=== PATIENT | female | born 1980 | race Caucasian/White ===

== ENCOUNTER 2017-12-22 09:36 | Emergency (ER) | payer OTHER ==
[~2017-12-22] VITALS: Ht 170.2 cm; Wt 91.7 kg
[~2017-12-22 09:36] MED LIST: B-CO1CAP5 PO; CHOL100010 PO; CLOM50CA3 PO; CYM60 PO; GLC/500 PO; LAMO200T35 PO; MULT-240 PO
[2017-12-22 09:43] VITALS: BP 132/82; TEMP 36.8; Ht 170.2 cm; Wt 91.7 kg
[2017-12-22] MEDS ORDERED: NEOMYCIN/POLYMYX/HYDROCORT OT SOLN 10 ML BTL OT STA (10:22)
[2017-12-22] MEDS ORDERED: OXYC1TAB3 PO (10:27)
--- NOTE | 2017-12-22 10:30 | EMERGENCY ROOM VISIT NOTE ---
ED Visit Note First contact with patient: 10:11 CHIEF COMPLAINT: Earache HISTORY OF PRESENT ILLNESS: This 37-year-old female patient presents to the emergency department, ambulatory, and states they have had a right sided earache 3 days. The pain is moderate, and is gradually increasing. They have noticed swelling and tenderness around the ear canal and pain below the ear on the upper neck. The pain is rated as sharp and 7/10. The patient has not been swimming recently. The patient does have a history of otitis media in the past , but states the hearing loss is worse now than previously. The patient has not had other URI symptoms recently. The patient has not had a fever. The patient has taken 400mg ibuprofen q4 hours with some relief of the pain. REVIEW OF SYSTEMS: A 6 system review of systems was completed with positives and pertinent negatives listed in the HPI. ALLERGIES: Lomotil MEDICATIONS: Adderall, Cymbalta PMH: PCOS SOCIAL HISTORY: The patient lives locally with family. She denies drug, alcohol , tobacco use. PHYSICAL EXAM: Vital Signs: Reviewed Nurse's notes, vital signs stable. GENERAL : This is a 37-year-old white female, in no acute distress, non toxic in appearance, well developed, well nourished. SKIN: Normal. MOUTH: The pharynx is normal in appearance and the tonsils are not enlarged. The airway is patent. There are no exudates over the tonsils. EARS: The right external auditory canal is swollen and inflamed and there is positive tragal tenderness. The tympanic membrane is slightly erythematous, but not bulging, with no effusion. The left tympanic membrane is pearly varela without erythema or bulging and the external auditory canal is clear. HEART: Regular rate and rhythm without murmurs gallops or rubs. LUNGS: Clear to auscultation bilaterally without wheezes, rales or rhonchi. No dullness to percussion. No accessory muscle use. No retractions. ED COURSE: I examined the patient. Her symptoms are consistent with otitis externa. A wick was easily placed in the right ear by myself. Cortisporin otic suspension 4 drops were placed in the right ear. She will be given a short course of narcotics for her pain. Discharge instructions reviewed. The patient was discharged home in stable condition. I attest that I have personally reviewed the patient's current medication list. Patient was found to have normal blood pressure on screening and does not require follow-up. Differential diagnosis includes otitis externa, otitis media, mastoiditis, acute sinusitis, dental abscess, odontalgia, viral etiology, malignancy, and others DIAGNOSIS: Acute right otitis externa Current/Historical Medications Scheduled B-Complex W/Biotin & Folic Aci (Super B-Complex), 1 CAP PO DAILY Cholecalciferol (Vitamin D), 2,000 INTER.UNIT PO DAILY Clomipramine Hcl (Anafranil), 100 MG PO DAILY Duloxetine Hcl (Cymbalta *), 60 MG PO DAILY Lamotrigine (Lamictal), 200 MG PO DAILY Metformin Hcl (Glucophage), 500 MG PO TID Multiple Vitamins W/ Minerals (Womens One Daily), 1 TAB PO DAILY Scheduled PRN Oxycodone Ir (Roxicodone Ir), 1 TAB PO Q4H PRN for Pain Allergies Coded Allergies: Atropine (Verified Allergy, Unknown, HIVES, 06/20/14) Diphenoxylate (Verified Allergy, Unknown, HIVES, 06/20/14) Vital Signs Date Time Temp Pulse Resp B/P (MAP) Pulse Ox O2 Delivery O2 Flow Rate FiO2 12/22/17 10:41 78 18 95 12/22/17 09:43 36.8 85 20 132/82 96 Room Air Departure Information Impression Primary Impression: Otitis externa Dispostion Home / Self-Care Condition GOOD Prescriptions Oxycodone Ir (Roxicodone Ir) 5 Mg Tab 1 TAB PO Q4H Y for Pain, #10 TAB For Initial Treatment Prov: Mayda Redmond PA-C 12/22/17 Referrals No Doctor, Assigned (PCP) Patient Instructions ED Otitis Externa, [facility] Additional Instructions You have been treated in the Emergency Department for an Outer Ear Infection ( Otitis Externa). You were prescribed Cortisporin to be taken 4 drops in the affected ear 3-4 times per day 7 days. This is an antibiotic. Stop this medication and contact a medical provider if you were to develop any significant adverse side effects including: wheezing, shortness of breath, passing out, vomiting, or a diffuse rash. Always take antibiotics as directed and COMPLETE the ENTIRE course regardless of the improvement of your symptoms. For pain and fever control, you can use the following [id number]-[id number] medicines (if >12 yo): Ibuprofen(Motrin, Advil) may be used for fever or pain. Use 600mg every six hours as needed. Take with food. Avoid using more than 2400mg in a 24 hour period. Do not use 2400mg per day for more than three consecutive days without physician direction. Prolonged inappropriate use can lead to stomach upset or ulcers. (AND/OR) Acetaminophen(Tylenol) may be used for fever or pain. Use 1000mg every six hours as needed. Avoid using more than 3000mg in a 24 hour period. Oxycodone (OxyIR) 5mg: Take 1 pill every four hours as needed for breakthrough pain. Avoid alcohol, operating machinery or dangerous equipment, working on ladders or roofs, DRIVING, or situations where being under the influence may be dangerous. It is recommended to use a stool softener such as Colace, 100mg twice daily while taking this medication to avoid constipation. You should follow-up with your Primary Care Provider from today's Emergency Department visit. I do recommend follow-up in 24-48 hours to monitor for improvement in symptoms. Return to the emergency department if you develop the following symptoms despite treatment course outlined above: headache, fever, intractable pain, increased redness, swelling, or purulent discharge. Work Instructions Return To Work: 1 day Problem Qualifiers Primary Impression: Otitis externa Otitis externa type: diffuse Chronicity: acute Laterality: right Qualified Codes: H60.311 - Diffuse otitis externa, right ear
[2017-12-22 10:41] VITALS: PULSE 78; O2SAT 95
== END 2017-12-22 10:42 | disposition home or self-care (01) ==
LOC: C.EDB 09:38
DX: H60.501 Unspecified acute noninfective otitis externa, right ear (principal); H91.91 Unspecified hearing loss, right ear; Z79.899 Other long term (current) drug therapy